=== PATIENT | female | born 1990 | race Caucasian/White ===

== ENCOUNTER → 2017-04-04 | Outpatient (CLI) | payer SELFPAY ==
--- NOTE | 2017-04-04 14:49 | RADIOLOGY REPORT (SQ) ---
EXAM DESCRIPTION: U/S [id number] TRNABD 1GES W/ODOP COMPLETED DATE/TIME: 04/04/2017 2:28 pm REASON FOR STUDY: ENCTR FOR SUPERVISION OF NORMAL FIRST 1ST TRIMESTER (Z34.01) Z34.01 ENC NTR FOR SUPRVSN OF NORMAL FIRST PREG, FIRST TRIMES COMPARISON: None. TECHNIQUE: Transabdominal static and realtime grayscale images acquired of the pelvis. Additional se lected spectral and color Doppler images recorded. All images stored on PACs. bHCG: Not applicable. LIMITATIONS: None. FINDINGS: FETUS: Living intrauterine . EGA: 9 week 6 day. MIMA: 11/01/2017. FHR: 169 beats per minute. SUBCHORIONIC BLEED: No. SIZE OF BLEED: Not applicable. UTERUS: No masses. No anomalies. CERVICAL LENGTH: 3.1 cm. Closed. RIGHT ADNEXA: Normal ovary with normal vascular flow. No adnexal free fluid. No adnexal masses. LEFT ADNEXA: Ovary not identified. No adnexal free fluid. No adnexal masses. FREE FLUID: None. OTHER: No other significant finding. IMPRESSION: LIVING INTRAUTERINE . EGA 9 WEEK 6 DAY. Trimester of : First - 0 to 13 weeks. TECHNICAL DOCUMENTATION: JOB ID: [id number] [employer]- All Rights Reserved
== END ==
LOC: RAD 13:31
PROVIDERS: ATTEND Nurse Practitioner Women's Health
DX: Z34.01 Encounter for supervision of normal first pregnancy, first trimester (principal)
CPT/HCPCS: 76801

== ENCOUNTER 2017-06-01 15:27 | Emergency (ER) | payer MEDICAID ==
--- NOTE | 2017-06-01 16:36 | ER Document Report ---
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 . Reports blood when she wipes and in her panties. Denies trauma , denies fever, vomiting, diarrhea, denies pmh. 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 denies pain with void, reports US completed at 9 weeks. TRAVEL OUTSIDE OF THE [place] IN LAST 30 DAYS: No - HPI Onset: Just prior to arrival Onset/Duration: Sudden Quality of pain: No pain Severity: None Associated Symptoms: None Exacerbated by: Denies Relieved by: Denies Similar symptoms previously: No Recently seen / treated by doctor: No - Related Data Allergies/Adverse Reactions: No Known Allergies Allergy (Verified 06/01/17 15:27) Past Medical History - General Information source: Patient - Social History Cigarette use (# per day): No Chew tobacco use (# tins/day): No Frequency of alcohol use: None Drug Abuse: None Occupation: [employer] Family history: Reviewed & Not Pertinent - Medical History Medical History: Negative Surgical Hx: Negative Review of Systems - Review of Systems Notes: Review HPI for review of systems., All other systems negative Physical Exam - Vital signs Vitals: Temp Pulse Resp BP Pulse Ox 98.2 F 102 H 16 116/58 L 100 06/01/17 15:30 06/01/17 15:30 06/01/17 15:30 06/01/17 15:30 06/01/17 15:30 - Notes Notes: PHYSICAL EXAMINATION: GENERAL: Well-appearing and in no acute distress HEAD: Atraumatic, normocephalic. EYES: Pupils equal round extraocular movements intact, sclera anicteric, conjunctiva are normal. ENT: nares patent, Moist mucous membranes. NECK: Normal range of motion, supple without lymphadenopathy LUNGS: CTAB and equal. No wheezes rales or rhonchi. HEART: Regular rate and rhythm without murmurs ABDOMEN: Soft, no tenderness. No guarding, no rebound BACK: Denies pain EXTREMITIES: Normal range of motion, no pitting edema. No cyanosis. NEUROLOGICAL: Cranial nerves grossly intact. Normal sensory/motor exams. PSYCH: Normal mood, normal affect. SKIN: Warm, Dry, normal turgor, no rashes or lesions noted Course - Re-evaluation Re-evalutation: 06/01/17 18:54 pt reports she is no longer bleeding. denies pain. reports she has an appointment this week with the health department. instructed on importance of fu on saturday, return here for heavy bleeding abd pain, concerns. She verbalized understanding. - Vital Signs Vital signs: Temp Pulse Resp BP Pulse Ox 98.2 F 102 H 16 116/58 L 100 06/01/17 15:30 06/01/17 15:30 06/01/17 15:30 06/01/17 15:30 06/01/17 15:30 - Laboratory Result Diagrams: 06/01/17 17:39 06/01/17 17:39 Laboratory results interpreted by me: 06/01/17 06/01/17 17:39 17:39 WBC 15.2 H Hct 35.5 L Absolute Neutrophils 11.8 H Creatinine 0.50 L - Diagnostic Test Radiology reviewed: Image reviewed, Reports reviewed - us shows 18w1d, living intrauterine , 153 bpm. Doctor's Discharge - Discharge Clinical Impression: Vaginal spotting Qualifiers: Weeks of gestation: 18 weeks Qualified Code(s): Z3A.18 - 18 weeks gestation of Condition: Stable Disposition: HOME, SELF-CARE Instructions: Bleeding During Early ([facility]), [employer], [facility], ([facility]) Additional Instructions: *You have been evaluated for bleeding while *The ultrasound showed you are 18 weeks 1 day living intrauterine , with a heart rate of 153. *Follow up with the health department Saturday. *Return to ED for worsening condition, changes, needs, heavy bleeding, concerns Forms: Return to Work
[2017-06-01 17:50] LABS: ABSOLUTE LYMPHOCYTES (AUTO) 2.2 10^3/uL (0.5-4.7); ABSOLUTE MONOCYTES (AUTO) 1.1 10^3/uL (0.1-1.4); ABSOLUTE NEUT (AUTO) 11.8 10^3/uL (1.7-8.2); BASOPHILS % (AUTO) 0.2 % (0-2); EOSINOPHILS % (AUTO) 0.3 % (0-6); HEMATOCRIT 35.5 % (36.0-47.0); HEMOGLOBIN 12.1 g/dL (12.0-15.5); LYMPHOCYTES % (AUTO) 14.3 % (13-45); MEAN CORPUSCULAR HEMOGLOBIN 31.8 pg (27.0-33.4); MEAN CORPUSCULAR HGB CONC 33.9 g/dL (32.0-36.0); MEAN CORPUSCULAR VOLUME 94 fl (80-97); MONOCYTES % (AUTO) 7.2 % (3-13); PLATELET COUNT 219 10^3/uL (150-450); RED BLOOD COUNT 3.79 10^6/uL (3.72-5.28); RED CELL DISTRIBUTION WIDTH 13.3 % (11.5-14.0); TOTAL CELLS COUNTED % (AUTO) 100 %; WHITE BLOOD COUNT 15.2 10^3/uL (4.0-10.5)
[2017-06-01 18:12] LABS: ALANINE AMINOTRANSFERASE 19 U/L (9-52); ALBUMIN 3.7 g/dL (3.5-5.0); ALKALINE PHOSPHATASE 52 U/L (38-126); ANION GAP 10 (5-19); ASPARTATE AMINO TRANSFERASE 15 U/L (14-36); BILIRUBIN,DIRECT 0.3 mg/dL (0.0-0.4); BILIRUBIN,TOTAL 0.5 mg/dL (0.2-1.3); BLOOD UREA NITROGEN 7 mg/dL (7-20); CALCIUM 9.8 mg/dL (8.4-10.2); CARBON DIOXIDE 23 mmol/L (22-30); CHLORIDE 105 mmol/L (98-107); GLUCOSE 76 mg/dL (75-110); POTASSIUM 4.2 mmol/L (3.6-5.0); SODIUM 138.1 mmol/L (137-145); TOTAL PROTEIN 6.7 g/dL (6.3-8.2)
--- NOTE | 2017-06-01 18:24 | RADIOLOGY REPORT (SQ) ---
EXAM DESCRIPTION: U/S OB LIMITED COMPLETED DATE/TIME: 06/01/2017 6:11 pm REASON FOR STUDY: spotting 18 weeks COMPARISON: None. TECHNIQUE: Static and Dynamic grayscale imaging performed of gravid uterus using transabdominal appr oach. Additional selected color Doppler and spectral images recorded. All stored on PACS. LIMITATIONS: None. FINDINGS: EGA: 18 weeks, 1 day MIMA: 11/01/2017 EFW: 229 grams PERCENTILE: Not applicable. Fetus less than or equal to 20 weeks gestation. MAGGY: Adequate amount. PLACENTA: Anterior. Marginal previa. PRESENTATION: Cephalic. ANATOMY: HEART RATE: 153 beats per minute. OTHER: No other significant finding. MATERNAL ADNEXA: Maternal ovaries not visualized. CERVICAL LENGTH: 3.3 cm Closed. OTHER: No other significant finding. IMPRESSION: LIVING INTRAUTERINE . ESTIMATED GESTATIONAL AGE 18 weeks, 1 day Marginal placenta previa. Trimester of : Second trimester - 13 weeks 1 day to 27 weeks 6 days. TECHNICAL DOCUMENTATION: JOB ID: [id number] [employer]- All Rights Reserved
[2017-06-01 18:54] VITALS: BP 109/62
== END 2017-06-01 18:56 | disposition home or self-care (01) ==
LOC: ER 15:27
DX: O46.92 Antepartum hemorrhage, unspecified, second trimester (principal); Z3A.18 18 weeks gestation of pregnancy
CPT/HCPCS: 36415; 76815; 80053; 85025; 99284

== ENCOUNTER 2017-10-22 13:14 | Inpatient (IN) | payer MEDICAID ==
[2017-10-22 14:10] LABS: APPEARANCE,URINE CLOUDY; BILIRUBIN,URINE NEGATIVE (NEGATIVE); GLUCOSE, URINE NEGATIVE (NEGATIVE); KETONES,URINE NEGATIVE (NEGATIVE); LEUKOCYTE ESTERASE,URINE SMALL (NEGATIVE); NITRITE,URINE NEGATIVE (NEGATIVE); PROTEIN,URINE 100 mg/dL (NEGATIVE); URINE SPECIFIC GRAVITY 1.013; UROBILINOGEN,URINE NEGATIVE mg/dL (<2.0)
[2017-10-22 14:13] LABS: COLOR,URINE DARK YELLOW
[2017-10-22 14:35] LABS: AMNISURE (ROM) POSITIVE (NEGATIVE)
[2017-10-22 15:47] LABS: URINE AMPHETAMINES SCREEN NEGATIVE; URINE BARBITURATES SCREEN NEGATIVE; URINE BENZODIAZEPINES SCREEN NEGATIVE; URINE COCAINE SCREEN NEGATIVE; URINE MARIJUANA (THC) SCREEN NEGATIVE; URINE METHADONE SCREEN NEGATIVE; URINE PHENCYCLIDINE SCREEN NEGATIVE
[2017-10-22 15:58] LABS: ABSOLUTE EOSINOPHILS # (AUTO) 0.1 10^3/uL (0.0-0.6); ABSOLUTE LYMPHOCYTES (AUTO) 1.5 10^3/uL (0.5-4.7); ABSOLUTE MONOCYTES (AUTO) 1.6 10^3/uL (0.1-1.4); ABSOLUTE NEUT (AUTO) 10.2 10^3/uL (1.7-8.2); BASOPHILS % (AUTO) 0.2 % (0-2); EOSINOPHILS % (AUTO) 0.4 % (0-6); HEMATOCRIT 29.7 % (36.0-47.0); HEMOGLOBIN 9.9 g/dL (12.0-15.5); LYMPHOCYTES % (AUTO) 11.3 % (13-45); MEAN CORPUSCULAR HEMOGLOBIN 29.1 pg (27.0-33.4); MEAN CORPUSCULAR HGB CONC 33.4 g/dL (32.0-36.0); MEAN CORPUSCULAR VOLUME 87 fl (80-97); MONOCYTES % (AUTO) 11.7 % (3-13); PLATELET COUNT 259 10^3/uL (150-450); RED BLOOD COUNT 3.41 10^6/uL (3.72-5.28); RED CELL DISTRIBUTION WIDTH 13.7 % (11.5-14.0); SEGMENTED NEUTROPHILS % (AUTO) 76.4 % (42-78); TOTAL CELLS COUNTED % (AUTO) 100 %; WHITE BLOOD COUNT 13.4 10^3/uL (4.0-10.5)
[2017-10-22] MEDS ORDERED: MISOPROSTOL 0.2 MG TABLET ONE (16:08)
[2017-10-22] MEDS ORDERED: LIDOCAINE 1% INJ-PF (10 MG/ML) 30 ML SDV ONE (16:08)
[2017-10-22] MEDS ORDERED: OXYTOCIN/NORMAL SALINE 20 UNIT/1,000 ML RTUINJ ONE (16:08)
--- NOTE | 2017-10-22 16:20 | Admission Physical ---
Datetime Report Generated by CPN: 10/22/2017 16:20 CURRENT ADMISSION Chief Complaint: Uterine Contractions; Suspected Ruptured Membranes Indication for Induction: Not Applicable Admit Impression : Term, Intrauterine ; Active Labor; Ruptured Membranes Admit Plan: Admit to Unit; Initiate Labor Protocol ALLERGIES Medication Allergies: No Medication Allergies: No Known Allergies (10/22/2017) Latex: No Latex Allergies Food Allergies: n/a Environmental Allergies: n/a OBSTETRICAL HISTORY EDC: 10/30/2017 00:00 : 1 Para: 0 Term: 0 : 0 SAB: 0 IAB: 0 Ectopic: 0 Livin Cesareans: 0 VBACs: 0 Multiple Births: 0 Gestational Diabetes: No Rh Sensitization: No Incompetent Cervix: No LUCIA: No Infertility: No ART Treatment: No Uterine Anomaly: No IUGR: No Hx Previous C/S: No Macrosomia: No Hx Loss/Stillborn: No PIH: No Hx : No Placenta Previa/Abruption: No Depression/PP Depression: No PTL/PROM: No Post Hemorrhage: No Current Procedures: Ultrasound Obstetrical History Comments: SEE RECORDS Alcohol: No Marijuana : No Cocaine: No Other Illicit Drugs: No Cigarettes: Never Smoker. [id number] MEDICAL HISTORY Diabetes: No Blood Transfusion: No Pulmonary Disease (Asthma, TB): No Breast Disease: No Hypertension: No Services Account Manager Surgery: No Heart Disease: No Hosp/Surgery: No Autoimmune Disorder: No Anesthetic Complications: No Kidney Disease: No Abnormal Pap Smear: No Neuro/Epilepsy: No Psychiatric Disorders: No Other Medical Diseases: No Hepatitis/Liver Disease: No Significant Family History: No Varicosities/Phlebitis: No Trauma/Violence : No Thyroid Dysfunction: No INFECTIOUS HISTORY Gonorrhea: No Genital Herpes: No Chlamydia: No Tuberculosis: No Syphilis: No Hepatitis: No HIV/AIDS Exposure: No Rash or Viral Illness: No HPV: No PHYSICAL EXAM General: Normal HEENT: Normal Neurologic: Normal Thyroid: Normal Heart: Normal Lungs: Normal Breast: Normal Back: Normal Abdomen: Normal Genitourinary Exam: Normal Extremities: Normal DTRs: Normal Pelvic Type: Adequate Vital Signs: Reviewed VAGINAL EXAM Dilatation: 4 Effacement: 80 Station: -2 MEMBRANES Pooling: Positive Membranes: Ruptured Amniotic Fluid Color: Clear FETUS A EGA: 38.6 Monitoring: External US FHR- Baseline: 150 Variability: Moderate 6-25bpm Accelerations: 15X15 Decelerations: None FHR Category: Category I Estimated Weight (gm): 3800 Presentation: Vertex PLANS FOR LABOR AND DELIVERY Labor and Delivery: None Pain Management: Epidural Feeding Preference: Breast Benefit of Breast Feed Discussed: Yes Circumcision: N/A INFORMED CONSENT Signature: with User ID: [email or web address]
[2017-10-22] MEDS ORDERED: BUPIVACAINE HCL 0.25 % INJ/PF (2.5 MG/1 ML) 30 ML VIAL ONE (16:33)
[2017-10-22] MEDS ORDERED: FENTANYL CITRATE INJ/PF 100 MCG/2 ML AMPUL ONE (16:33)
[2017-10-22] MEDS ORDERED: PHENYLEPHRINE HCL INJ/PF 10 MG/1 ML SDV ONE (16:33)
[2017-10-22] MEDS ORDERED: EPHEDRINE SULFATE INJ 50 MG/1 ML AMPULE ONE (16:33)
[2017-10-22] MEDS ORDERED: FENTANYL/BUPIVACAINE/NS/PF 300 MCG/150 ML RTUINJ EPI ONE (16:33)
[2017-10-22] MEDS ORDERED: LIDOCAINE 1.5%/EPINEPHRINE INJ-PF 30 ML SDV ONE (17:01)
[2017-10-22] MEDS ORDERED: ACETAMINOPHEN 325 MG TABLET ONE (23:40)
[2017-10-23] MEDS ORDERED: CITRIC ACID/SODIUM CITRATE ORAL SOLN 15 ML UDCUP ONE (01:18)
[2017-10-23] MEDS ORDERED: CEFAZOLIN INJ 1 GM VIAL ONE (01:18)
[2017-10-23] MEDS ORDERED: MIDAZOLAM 2 MG/2 ML INJ ONE ×2 (01:51→02:16)
[2017-10-23] MEDS ORDERED: ONDANSETRON HCL INJ/PF 4 MG/2 ML SDV ONE (01:51)
[2017-10-23] MEDS ORDERED: OXYTOCIN/NORMAL SALINE 20 UNIT/1,000 ML RTUINJ ONE ×2 (01:51→03:49)
[2017-10-23] MEDS ORDERED: MORPHINE SULFATE 10 MG/ML INJ ONE ×2 (01:52→07:53)
[2017-10-23] MEDS ORDERED: MEASLES,MUMPS&RUBELLA VACC/PF 0.5 ML VIAL SUBCUT PRN (02:39)
[2017-10-23] MEDS ORDERED: ACETAMINOPHEN 1,000 MG/100 ML RTUPB IV PRN (02:39)
[2017-10-23] MEDS ORDERED: MORPHINE SULFATE 10 MG/ML INJ IV PRN (02:39)
[2017-10-23] MEDS ORDERED: PROMETHAZINE HCL INJ 25 MG/1 ML VIAL IV PRN ×3 (02:39→02:41)
[2017-10-23] MEDS ORDERED: SIMETHICONE 80 MG TAB.CHEW PO PRN (02:39)
[2017-10-23] MEDS ORDERED: OXYTOCIN/NORMAL SALINE 20 UNIT/1,000 ML RTUINJ IV PRN (02:39)
[2017-10-23] MEDS ORDERED: DIPH/PERTUSS(ACELL)/TETANUS VAC/PF 0.5 ML SYR (>=10YO) IM PRN (02:39)
[2017-10-23] MEDS ORDERED: OXYCODONE-ACETAMINOPHEN 5-325 MG TABLET PO PRN ×2 (02:39)
[2017-10-23] MEDS ORDERED: ACETAMINOPHEN 325 MG TABLET PO PRN (02:39)
[2017-10-23] MEDS ORDERED: FENTANYL CITRATE INJ/PF 100 MCG/2 ML AMPUL IV PRN ×3 (02:41)
[2017-10-23] MEDS ORDERED: ONDANSETRON HCL INJ/PF 4 MG/2 ML SDV IV PRN (02:41)
[2017-10-23] MEDS ORDERED: AMPICILLIN SOD/SULBACTAM 3 GM VIAL ONE (02:56)
[2017-10-23] MEDS ORDERED: ACETAMINOPHEN 1,000 MG/100 ML RTUPB IV ONE (03:49)
--- NOTE | 2017-10-23 04:00 | OPERATIVE REPORT E ---
Operative Report NAME: SYLVESTER ANDERSON : 1990 AGE: 27Y DATE OF SURGERY: 10/23/2017 ROOM: LR200 PREOPERATIVE DIAGNOSIS: 1. IUP AT 39 WEEKS AND 0 DAYS. 2. FAILURE TO DESCEND. 3. TACHYCARDIA. 4. CHORIOAMNIONITIS. POSTOPERATIVE DIAGNOSIS: 1. IUP AT 39 WEEKS AND 0 DAYS. 2. FAILURE TO DESCEND. 3. TACHYCARDIA. 4. CHORIOAMNIONITIS. OPERATION: Low transverse hysterotomy section. SURGEON: RYAN SIEGEL M.D. ANESTHESIA: Ann Singh MD with an epidural. FINDINGS: Female infant in cephalic presentation wedged in the pelvis. Apgars of 6 and 8. Weight 7 pounds 0 ounces. COMPLICATIONS: None. ESTIMATED BLOOD LOSS: 800 mL SPECIMENS REMOVED: None. PROCEDURE IN DETAIL: The patient was taken to the operating room, prepared and draped in a normal sterile fashion in a supine position with a frogleg position. The skin incision was made with a scalpel and carried through to the underlying layer of fascia with the same scalpel. The fascia was excised in the midline and extended laterally with Cande. The fascia was then dissected from the rectus muscle sharply with Cande. The rectus muscle was divided. The peritoneal cavity was entered bluntly with surgeon finger fracture, with good visualization of the bladder and the uterus. The bladder blade was inserted. The hysterotomy was nicked with the scalpel and extended laterally with surgeon finger fracture. A hand up was then provided by an RN and the 's head was delivered atraumatically. The nose and mouth were suctioned with a suction bulb and the cord was clamped and cut. The infant was handed off to waiting pediatricians. The cord blood was collected and the placenta was removed manually. The uterus was exteriorized and cleared of clots and debris. The hysterotomy was closed with 0 Monocryl in a running locked fashion and a second layer of the same suture was used to imbricate to ensure hemostasis. The uterus was returned to the abdomen. The peritoneal cavity was cleared of clots and debris. The rectus muscle and peritoneum were reapproximated with a mattress stitch of 2-0 chromic. The fascia was closed with 0 Vicryl. The subcutaneous layer was closed with plain catgut and the skin was closed with 4-0 Vicryl. The patient tolerated the procedure well. Sponge, lap, and needle counts were correct x2, and the patient was taken to recovery in stable condition. DICTATING PHYSICIAN: RYAN SIEGEL M.D. [id number] PHY#: [id number] ID: [id number] JOB#: [id number] ACCT: [id number] cc:RYAN SIEGEL M.D. >
[2017-10-23] MEDS ORDERED: IBUPROFEN 800 MG TABLET PO SCH (06:00)
[2017-10-23] MEDS ORDERED: AMPICILLIN SOD/SULBACTAM 3 GM VIAL IV SCH (06:00)
[2017-10-23] MEDS ORDERED: KETOROLAC TROMETHAMINE INJ/PF 30 MG/1 ML SDV IV SCH (06:00)
[2017-10-23] MEDS ORDERED: KETOROLAC TROMETHAMINE INJ/PF 30 MG/1 ML SDV ONE (07:52)
[2017-10-23] MEDS: DOCUSATE SODIUM 100 MG CAPSULE PO SCH ×2 (09:33→17:25)
[2017-10-23] MEDS: PRENATAL VITAMIN W DHA CAPSULE PO SCH (09:33)
[2017-10-23 11:31] LABS: HEMATOCRIT 22.6 % (36.0-47.0); MEAN CORPUSCULAR HEMOGLOBIN 28.2 pg (27.0-33.4); MEAN CORPUSCULAR HGB CONC 32.1 g/dL (32.0-36.0); MEAN CORPUSCULAR VOLUME 88 fl (80-97); PLATELET COUNT 215 10^3/uL (150-450); RED BLOOD COUNT 2.58 10^6/uL (3.72-5.28)
[2017-10-23 11:35] LABS: HEMOGLOBIN 7.3 g/dL (12.0-15.5)
[2017-10-23] MEDS ORDERED: FERROUS SULFATE 325 MG TABLET PO ONE (14:00)
[2017-10-23] MEDS ORDERED: ASCORBIC ACID 500 MG TABLET PO ONE (14:00)
[2017-10-23] MEDS: AMPICILLIN SODIUM/SULBACTAM NA 3 GM in NORMAL SALINE 100 ML IV SCH ×2 (17:23→21:34)
[2017-10-23] MEDS: KETOROLAC TROMETHAMINE INJ/PF 30 MG/1 ML SDV IV SCH (17:24)
[2017-10-24] MEDS: KETOROLAC TROMETHAMINE INJ/PF 30 MG/1 ML SDV IV SCH (01:03)
[2017-10-24 07:04] LABS: HEMATOCRIT 21.4 % (36.0-47.0); MEAN CORPUSCULAR HEMOGLOBIN 28.5 pg (27.0-33.4); MEAN CORPUSCULAR HGB CONC 32.8 g/dL (32.0-36.0); MEAN CORPUSCULAR VOLUME 87 fl (80-97); PLATELET COUNT 283 10^3/uL (150-450); RED BLOOD COUNT 2.47 10^6/uL (3.72-5.28); WHITE BLOOD COUNT 22.2 10^3/uL (4.0-10.5)
[2017-10-24] MEDS: DOCUSATE SODIUM 100 MG CAPSULE PO SCH ×2 (09:11→17:43)
[2017-10-24] MEDS: IBUPROFEN 800 MG TABLET PO SCH ×3 (09:11→23:02)
[2017-10-24] MEDS: ASCORBIC ACID 500 MG TABLET PO SCH (09:11)
[2017-10-24] MEDS: FERROUS SULFATE 325 MG TABLET PO SCH (09:12)
[2017-10-24] MEDS: PRENATAL VITAMIN W DHA CAPSULE PO SCH (09:13)
--- NOTE | 2017-10-24 09:52 | PDOC PROGRESS REPORT ---
Subjective-OB Progress Note for:: 10/24/17 Subjective: Pt doing well, no concerns. She reports light bleeding, regular diet, +flatus and voiding without difficulty. Denies symptoms of anemia, racing heart, dizziness, shortness of breath. Physical Exam (OB) Vital Signs: Temp Pulse Resp BP Pulse Ox 98.5 F 113 H 18 90/60 L 100 10/24/17 07:54 10/24/17 07:54 10/24/17 07:54 10/24/17 07:54 10/24/17 07:54 Intake & Output 10/23/17 10/24/17 10/25/17 06:59 06:59 06:59 Intake Total 1825 500 Output Total 1525 Balance 300 500 Weight 55.7 kg - Dressing Removed: No - opsite dressing in place Incision: Dressing - Abdomen Description: Tender, Soft Hernia Present: No Fundal Description: Firm, Midline Describe if Not Midline: Per Primary Nurse Fundal Height: u/u - u/2 Objective-Diagnostic Laboratory: 10/24/17 06:52 10/23/17 10/24/17 11:05 06:52 WBC 18.0 H 22.2 H RBC 2.58 L 2.47 L Hgb 7.3 L D 7.0 L Hct 22.6 L 21.4 L MCV 88 87 MCH 28.2 28.5 MCHC 32.1 32.8 RDW 14.0 14.0 Plt Count 215 283 Assessment and Plan(PN) - Assessment and Plan (1) delivery delivered Is this a current diagnosis for this admission?: Yes - Time Spent with Patient Time with patient: Less than 15 minutes Medications reviewed and adjusted accordingly: Yes - Disposition Anticipated Discharge: Home Within: within 24 hours
[2017-10-25] MEDS: IBUPROFEN 800 MG TABLET PO SCH ×4 (03:19→21:54)
[2017-10-25 06:40] LABS: HEPATITIS C VIRUS AB <0.1 s/co ratio (0.0-0.9)
[2017-10-25 07:29] LABS: HEMATOCRIT 18.9 % (36.0-47.0); MEAN CORPUSCULAR HEMOGLOBIN 29.4 pg (27.0-33.4); MEAN CORPUSCULAR HGB CONC 33.7 g/dL (32.0-36.0); MEAN CORPUSCULAR VOLUME 87 fl (80-97); PLATELET COUNT 276 10^3/uL (150-450); RED BLOOD COUNT 2.16 10^6/uL (3.72-5.28); RED CELL DISTRIBUTION WIDTH 14.3 % (11.5-14.0); WHITE BLOOD COUNT 20.2 10^3/uL (4.0-10.5)
[2017-10-25 07:35] LABS: HEMOGLOBIN 6.4 g/dL (12.0-15.5)
[2017-10-25 09:11] LABS: HEPATITS B SURFACE ANTIGEN Negative (Negative)
[2017-10-25] MEDS: FERROUS SULFATE 325 MG TABLET PO SCH (10:22)
[2017-10-25] MEDS: PRENATAL VITAMIN W DHA CAPSULE PO SCH (10:22)
[2017-10-25] MEDS: DOCUSATE SODIUM 100 MG CAPSULE PO SCH ×2 (10:22→17:29)
[2017-10-25] MEDS: ASCORBIC ACID 500 MG TABLET PO SCH (10:22)
[2017-10-25 10:27] LABS: ABSOLUTE RETICS # 0.084 10^6/uL (0.028-0.122); HEMATOCRIT 21.8 % (36.0-47.0); MEAN CORPUSCULAR HEMOGLOBIN 28.6 pg (27.0-33.4); MEAN CORPUSCULAR HGB CONC 32.6 g/dL (32.0-36.0); MEAN CORPUSCULAR VOLUME 88 fl (80-97); PLATELET COUNT 327 10^3/uL (150-450); RED BLOOD COUNT 2.48 10^6/uL (3.72-5.28); RED CELL DISTRIBUTION WIDTH 14.1 % (11.5-14.0); RETICULOCYTE COUNT (AUTO) 3.37 % (0.66-2.85); WHITE BLOOD COUNT 20.9 10^3/uL (4.0-10.5)
[2017-10-25 10:33] LABS: IRON(TIBC) 11.5 ug/dL (37-170)
[2017-10-25 10:35] LABS: HEMOGLOBIN 7.1 g/dL (12.0-15.5)
[2017-10-25 10:37] LABS: ALANINE AMINOTRANSFERASE 39 U/L (9-52); ALBUMIN 2.5 g/dL (3.5-5.0); ALKALINE PHOSPHATASE 114 U/L (38-126); ANION GAP 9 (5-19); ASPARTATE AMINO TRANSFERASE 42 U/L (14-36); BILIRUBIN,DIRECT 0.3 mg/dL (0.0-0.4); BILIRUBIN,TOTAL 0.6 mg/dL (0.2-1.3); BLOOD UREA NITROGEN 12 mg/dL (7-20); CALCIUM 8.3 mg/dL (8.4-10.2); CARBON DIOXIDE 27 mmol/L (22-30); CHLORIDE 107 mmol/L (98-107); GLUCOSE 118 mg/dL (75-110); POTASSIUM 3.2 mmol/L (3.6-5.0); SODIUM 143.3 mmol/L (137-145); TOTAL PROTEIN 5.2 g/dL (6.3-8.2)
[2017-10-25 10:38] LABS: ABSOLUTE LYMPHOCYTES# (MANUAL) 2.3 10^3/uL (0.5-4.7); ABSOLUTE MONOCYTES # (MANUAL) 0.6 10^3/uL (0.1-1.4); BASOPHILS % (MANUAL) 0 % (0-2); EOSINOPHILS % (MANUAL) 0 % (0-6); HYPOCHROMASIA SLIGHT; LYMPHOCYTES % (MANUAL) 11 % (13-45); MONOCYTES % (MANUAL) 3 % (3-13); PLATELET COMMENT ADEQUATE; POLYCHROMASIA 1+; TOTAL CELLS COUNTED 100; TOXIC GRANULATION SLIGHT
[2017-10-25 10:39] LABS: SEGMENTED NEUTROPHILS % (MAN) 86 % (42-78)
[2017-10-25 11:31] LABS: PATH REVIEW PATHOLOGIST REVIEWED
[2017-10-25] MEDS ORDERED: NORMAL SALINE 250 ML IV PRN ×2 (11:56)
[2017-10-25 11:57] LABS: FOLATE > 20.00 ng/mL (>2.76)
[2017-10-25] MEDS ORDERED: FERUMOXYTOL 510 MG in NORMAL SALINE 100 ML IV ONE (14:00)
--- NOTE | 2017-10-25 15:06 | PDOC PROGRESS REPORT ---
Subjective-OB Progress Note for:: 10/25/17 Subjective: doing well, + flatus, no BM, s/p section due to Arrest of descent despite pushing. High QBL 800ml vs 1300ml, RH po, denies BROWNING/blurry vision/RUQ, ambulating without difficulty, denies SOB Physical Exam (OB) Vital Signs: Temp Pulse Resp BP Pulse Ox 98.4 F 89 18 100/53 L 100 10/25/17 13:59 10/25/17 13:59 10/25/17 13:59 10/25/17 13:59 10/25/17 13:59 Intake & Output 10/24/17 10/25/17 10/26/17 06:59 06:59 06:59 Intake Total 1825 850 0 Output Total 1525 Balance 300 850 0 - PIH/Pre-Eclampsia Clonus: Negative Headache: Absent Epigastric Pain: No Visual Changes: No - Dressing Removed: Yes Incision: Dressing Closure Type: Sutures - Lochia Lochia Amount: Scant < 10 ml Lochia Color: Rubra/Red - Abdomen Description: Soft, Flat Hernia Present: No Fundal Description: Firm, Midline Describe if Not Midline: Per Primary Nurse Fundal Height: u/u - u/2 Objective-Diagnostic Laboratory: 10/25/17 10:11 10/25/17 10:11 10/22/17 10/25/17 10/25/17 15:32 07:12 10:11 WBC 20.2 H RBC 2.16 L Hgb 6.4 L Hct 18.9 L MCV 87 MCH 29.4 MCHC 33.7 RDW 14.3 H Plt Count 276 Seg Neutrophils % Lymphocytes % Monocytes % Eosinophils % Basophils % Absolute Neutrophils Absolute Lymphocytes Absolute Monocytes Absolute Eosinophils Absolute Basophils Retic Count (auto) Absolute Retic Sodium Potassium Chloride Carbon Dioxide Anion Gap BUN Creatinine Est GFR ( Amer) Est GFR (Non-Af Amer) Glucose Calcium Iron 11.5 L TIBC 431 % Saturation 3 Ferritin 35.00 Total Bilirubin AST ALT Alkaline Phosphatase Total Protein Albumin Vitamin B12 540.0 Folate > 20.00 Blood Type O POSITIVE Antibody Screen NEGATIVE 10/25/17 10/25/17 10:11 10:11 WBC 20.9 H RBC 2.48 L Hgb 7.1 L Hct 21.8 L MCV 88 MCH 28.6 MCHC 32.6 RDW 14.1 H Plt Count 327 Seg Neutrophils % Not Reportable Lymphocytes % Not Reportable Monocytes % Not Reportable Eosinophils % Not Reportable Basophils % Not Reportable Absolute Neutrophils Not Reportable Absolute Lymphocytes Not Reportable Absolute Monocytes Not Reportable Absolute Eosinophils Not Reportable Absolute Basophils Not Reportable Retic Count (auto) 3.37 H Absolute Retic 0.084 Sodium 143.3 Potassium 3.2 L Chloride 107 Carbon Dioxide 27 Anion Gap 9 BUN 12 Creatinine 0.57 Est GFR ( Amer) > 60 Est GFR (Non-Af Amer) > 60 Glucose 118 H Calcium 8.3 L Iron TIBC % Saturation Ferritin Total Bilirubin 0.6 AST 42 H ALT 39 Alkaline Phosphatase 114 Total Protein 5.2 L Albumin 2.5 L Vitamin B12 Folate Blood Type Antibody Screen Assessment and Plan(PN) - Assessment and Plan (1) Anemia, iron deficiency Qualifiers: Iron deficiency anemia type: unspecified iron deficiency Qualified Code(s) : D50.9 - Iron deficiency anemia, unspecified Is this a current diagnosis for this admission?: Yes Plan: S/w Dr. Loza and iron studies obtained. plan for Feraheme 510mg Iv x 1 then plan to f/u with [facility] as outpatient. B12 and folate were normal. (2) Anemia due to blood loss, acute Is this a current diagnosis for this admission?: Yes Plan: high QBL with decrease in Hb/Hct - plan for unit PRBCs then iron infusion then monitor and repeat CBC in am. Baby also can not be discharged at this time due to bilirubin (3) Arrest of descent, delivered, current hospitalization Is this a current diagnosis for this admission?: Yes Plan: S/p primary C/S due to Arrest of Descent. Doing well. Continue with routine pp care, routine postop care. Plan:: Discharge to home in am. Should complete iron infusion and PRBC transfusion today. Recheck CBC in am - Time Spent with Patient Time with patient: 15-25 minutes Critical Time spent with patient: Less than 15 minutes Medications reviewed and adjusted accordingly: Yes - Disposition Anticipated Discharge: Home Within: within 24 hours Disposition: Discharge to home tomorrow.
[2017-10-26] MEDS: IBUPROFEN 800 MG TABLET PO SCH ×2 (03:06→09:32)
[2017-10-26 06:39] LABS: HEMATOCRIT 21.4 % (36.0-47.0); MEAN CORPUSCULAR HEMOGLOBIN 28.5 pg (27.0-33.4); MEAN CORPUSCULAR HGB CONC 33.2 g/dL (32.0-36.0); MEAN CORPUSCULAR VOLUME 86 fl (80-97); PLATELET COUNT 274 10^3/uL (150-450); RED BLOOD COUNT 2.49 10^6/uL (3.72-5.28); RED CELL DISTRIBUTION WIDTH 13.8 % (11.5-14.0); WHITE BLOOD COUNT 15.3 10^3/uL (4.0-10.5)
[2017-10-26 07:11] LABS: HEMOGLOBIN 7.1 g/dL (12.0-15.5)
--- NOTE | 2017-10-26 08:50 | PDOC PROGRESS REPORT ---
Subjective-OB Progress Note for:: 10/26/17 Subjective: Doing well, baby, OOB, tolerating low iron, Motrin for pain control, does not want anything stronger, passing gas Physical Exam (OB) Vital Signs: Temp Pulse Resp BP Pulse Ox 97.4 F 80 15 93/45 L 97 10/26/17 03:00 10/26/17 03:00 10/26/17 03:00 10/26/17 03:00 10/26/17 03:00 Intake & Output 10/25/17 10/26/17 10/27/17 06:59 06:59 06:59 Intake Total 850 1350 Balance 850 1350 - PIH/Pre-Eclampsia Clonus: Negative Headache: Absent Epigastric Pain: No Visual Changes: No - Dressing Removed: No - opsite dressing in place Incision: Dressing Closure Type: Sutures - Lochia Lochia Amount: Scant < 10 ml Lochia Color: Rubra/Red - Abdomen Description: Tender, Soft Hernia Present: No Fundal Description: Firm, Midline Describe if Not Midline: Per Primary Nurse Fundal Height: u/u - u/2 Objective-Diagnostic Laboratory: 10/26/17 05:51 10/25/17 10:11 10/22/17 10/25/17 10/25/17 15:32 10:11 10:11 WBC 20.9 H RBC 2.48 L Hgb 7.1 L Hct 21.8 L MCV 88 MCH 28.6 MCHC 32.6 RDW 14.1 H Plt Count 327 Seg Neutrophils % Not Reportable Lymphocytes % Not Reportable Monocytes % Not Reportable Eosinophils % Not Reportable Basophils % Not Reportable Absolute Neutrophils Not Reportable Absolute Lymphocytes Not Reportable Absolute Monocytes Not Reportable Absolute Eosinophils Not Reportable Absolute Basophils Not Reportable Retic Count (auto) 3.37 H Absolute Retic 0.084 Sodium Potassium Chloride Carbon Dioxide Anion Gap BUN Creatinine Est GFR ( Amer) Est GFR (Non-Af Amer) Glucose Calcium Iron 11.5 L TIBC 431 % Saturation 3 Ferritin 35.00 Total Bilirubin AST ALT Alkaline Phosphatase Total Protein Albumin Vitamin B12 540.0 Folate > 20.00 Blood Type O POSITIVE Antibody Screen NEGATIVE 10/25/17 10/26/17 10:11 05:51 WBC 15.3 H RBC 2.49 L Hgb 7.1 L Hct 21.4 L MCV 86 MCH 28.5 MCHC 33.2 RDW 13.8 Plt Count 274 Seg Neutrophils % Lymphocytes % Monocytes % Eosinophils % Basophils % Absolute Neutrophils Absolute Lymphocytes Absolute Monocytes Absolute Eosinophils Absolute Basophils Retic Count (auto) Absolute Retic Sodium 143.3 Potassium 3.2 L Chloride 107 Carbon Dioxide 27 Anion Gap 9 BUN 12 Creatinine 0.57 Est GFR ( Amer) > 60 Est GFR (Non-Af Amer) > 60 Glucose 118 H Calcium 8.3 L Iron TIBC % Saturation Ferritin Total Bilirubin 0.6 AST 42 H ALT 39 Alkaline Phosphatase 114 Total Protein 5.2 L Albumin 2.5 L Vitamin B12 Folate Blood Type Antibody Screen Assessment and Plan(PN) - Assessment and Plan (1) Anemia, iron deficiency Qualifiers: Iron deficiency anemia type: unspecified iron deficiency Qualified Code(s) : D50.9 - Iron deficiency anemia, unspecified Is this a current diagnosis for this admission?: Yes (2) Anemia due to blood loss, acute Is this a current diagnosis for this admission?: Yes (3) Arrest of descent, delivered, current hospitalization Is this a current diagnosis for this admission?: Yes (4) delivery delivered Is this a current diagnosis for this admission?: Yes - Time Spent with Patient Time with patient: Less than 15 minutes Medications reviewed and adjusted accordingly: Yes - Disposition Anticipated Discharge: Home Within: Other - home today
--- NOTE | 2017-10-26 08:55 | PDOC DISCHARGE SUMMARY ---
Final Diagnosis Discharge Date: 10/26/17 - Final Diagnosis (1) Anemia, iron deficiency Is this a current diagnosis for this admission?: Yes (2) Anemia due to blood loss, acute Is this a current diagnosis for this admission?: Yes (3) Arrest of descent, delivered, current hospitalization Is this a current diagnosis for this admission?: Yes (4) delivery delivered Is this a current diagnosis for this admission?: Yes Discharge Data - Discharge Medication Prescriptions: Ferrous Sulfate [Feosol 325 mg Tablet] 325 mg PO DAILY #30 tablet Ibuprofen [Motrin 800 mg Tablet] 800 mg PO Q6A #60 tablet Home Medications: Prenat 115/Iron Fum/Folic/Dss [Pnv-Ferrous Qoemscvy-Aafq-QQ] 1 tab PO DAILY 07/07 Ferrous Sulfate [Feosol 325 mg Tablet] 325 mg PO DAILY #30 tablet 10/26/17 Ibuprofen [Motrin 800 mg Tablet] 800 mg PO Q6A #60 tablet 10/26/17 Vit/Dha [ Multi + Dha Capsule] 1 cap PO DAILY capsule Gestational Age: 39 Reason(s) for Admission: Onset of Labor, PROM Procedures: NST, Ultrasound Intrapartum Procedure(s): : Low Cervical, Transverse - Data Baby 1 Female at 1 minute: 6 at 5 minutes: 8 Weight: 3.175 kg Home with Mother: Yes Complications: No - Diagnosis Test Laboratory: Temp Pulse Resp BP Pulse Ox 97.4 F 80 15 93/45 L 97 10/26/17 03:00 10/26/17 03:00 10/26/17 03:00 10/26/17 03:00 10/26/17 03:00 10/22/17 10/22/17 10/23/17 13:21 15:32 11:05 RBC 3.41 L 2.58 L Hgb 9.9 L 7.3 L D Hct 29.7 L 22.6 L Urine Opiates Screen NEGATIVE 10/24/17 10/25/17 10/25/17 06:52 07:12 10:11 RBC 2.47 L 2.16 L 2.48 L Hgb 7.0 L 6.4 L 7.1 L Hct 21.4 L 18.9 L 21.8 L Urine Opiates Screen 10/26/17 05:51 RBC 2.49 L Hgb 7.1 L Hct 21.4 L Urine Opiates Screen - Discharge information/Instructions Discharge Activity: Activity As Tolerated, No Lifting Over 10 Pounds, No Lifting /Push/Pulling, Pelvic Rest Discharge Diet: As Tolerated, Regular Disposition: HOME, SELF-CARE Follow [facility] with: [facility] in: 1, Weeks
[2017-10-26] MEDS: FERROUS SULFATE 325 MG TABLET PO SCH (09:30)
[2017-10-26] MEDS: ASCORBIC ACID 500 MG TABLET PO SCH (09:30)
[2017-10-26] MEDS: PRENATAL VITAMIN W DHA CAPSULE PO SCH (09:30)
[2017-10-26] MEDS: DOCUSATE SODIUM 100 MG CAPSULE PO SCH (09:30)
[2017-10-26 11:13] VITALS: BP 100/50
== END 2017-10-26 11:50 | disposition home or self-care (01) | DRG 765 ==
LOC: LC 13:14 → LR 14:31 → 2S 10-23 08:07
PROVIDERS: ADMIT Obstetrics & Gynecology; ATTEND Obstetrics & Gynecology
PROC: 10D00Z1 Extraction of Products of Conception, Low, Open Approach (ICD-10-PCS; principal; 2017-10-23)
PROC: 4A1HXCZ Monitoring of Products of Conception, Cardiac Rate, External Approach (ICD-10-PCS; 2017-10-23)
PROC: 30233N1 Transfusion of Nonautologous Red Blood Cells into Peripheral Vein, Percutaneous Approach (ICD-10-PCS; 2017-10-25)
DX: O62.1 Secondary uterine inertia (principal); O41.1230 Chorioamnionitis, third trimester, not applicable or unspecified; D62 Acute posthemorrhagic anemia; O76 Abnormality in fetal heart rate and rhythm complicating labor and delivery; O99.02 Anemia complicating childbirth; Z3A.39 39 weeks gestation of pregnancy; Z37.0 Single live birth
CPT/HCPCS: 1961; 36415; 36430; 80053; 80307; 81005; 82607; 82728; 82746; 83540; 83550; 84112; 85025; 85027; 85045; 86592; 86803; 86804; 86850; 86900; 86901; 86920; 87340; 94799; J0131; J0295; J0690; J1885; J2250; J2270; J2370; J2405; J2590; J3010; J3490; P9016; Q0139